=== PATIENT | female | born 1960 ===

== ENCOUNTER 2017-12-23 19:03 | Emergency (ER) | payer MEDICAID ==
[2017-12-23] MEDS ORDERED: Sodium Chloride 0.9% 1,000 ML IV STA (19:56)
[2017-12-23] MEDS ORDERED: Morphine 2 mg/ml ISec IVP STA (19:57)
--- NOTE | 2017-12-23 20:04 | ED PDOC ---
Arrival/HPI <LivanDawood - Last Filed: 12/23/17 23:18> - General Historian: Patient - History of Present Illness Narrative History of Present Illness (Text): 12/23/17 20:02 57yo female with no pmhx present to ED with complaint of sharp constant RUQ abdominal pain that radiates to her back since this morning. the son who interpreted states pain is worse with movement. She did not take any analgesic. she is s/p cholecystectomy. denies nausea, vomiting, constipation, diarrhea, hematuria, urinary symptoms, ripping/tearing upper back pain, fever, chills, trauma, any other complaint. <Karis Chauhan A - Last Filed: 12/24/17 19:19> - General Chief Complaint: Back Pain Time Seen by Provider: 12/23/17 19:36 Past Medical History - Provider Review Nursing Documentation Reviewed: Yes - Infectious Disease Hx of Infectious Diseases: None - Reproductive Menopause: Yes - Psychiatric Hx Substance Use: No - Anesthesia Hx Anesthesia: No <Karis Chauhan A - Last Filed: 12/24/17 19:19> Family/Social History - Physician Review Nursing Documentation Reviewed: Yes Family/Social History: Unknown Family HX Smoking Status: Unknown If Ever Smoked Hx Alcohol Use: No Hx Substance Use: No <Karis Chauhan A - Last Filed: 12/24/17 19:19> Allergies/Home Meds <LivanDawood - Last Filed: 12/23/17 23:18> <Karis Chauhan A - Last Filed: 12/24/17 19:19> Allergies/Adverse Reactions: Allergies No Known Allergies Allergy (Verified 12/23/17 19:20) Review of Systems - Physician Review All systems were reviewed & negative as marked: Yes - Review of Systems Constitutional: Normal Eyes: Normal ENT: Normal Respiratory: Normal Cardiovascular: Normal Gastrointestinal: Abdominal Pain. absent: Constipation, Diarrhea, Nausea, Vomiting, Hematochezia, Hematemesis Genitourinary Female: Normal Musculoskeletal: Normal Skin: Normal Neurological: Normal Endocrine: Normal Hemo/Lymphatic: Normal Psychiatric: Normal <Karis Chauhan A - Last Filed: 12/24/17 19:19> Physical Exam Vital Signs Temp Pulse Resp BP Pulse Ox 12/23/17 22:28 61 17 132/83 98 12/23/17 19:17 98.7 F 74 18 158/80 H 99 <Dawood Licona - Last Filed: 12/23/17 23:18> Vital Signs Reviewed: Yes Vital Signs Temp Pulse Resp BP Pulse Ox 12/23/17 19:17 98.7 F 74 18 158/80 H 99 Temperature: Afebrile Blood Pressure: Normal Pulse: Regular Respiratory Rate: Normal Appearance: Positive for: Well-Appearing, Non-Toxic, Comfortable Pain Distress: None Mental Status: Positive for: Alert and Oriented X 3 - Systems Exam Head: Present: Atraumatic, Normocephalic Pupils: Present: PERRL Extroacular Muscles: Present: EOMI Conjunctiva: Present: Normal Mouth: Present: Moist Mucous Membranes Neck: Present: Normal Range of Motion Respiratory/Chest: Present: Clear to Auscultation, Good Air Exchange. No: Respiratory Distress, Accessory Muscle Use Cardiovascular: Present: Regular Rate and Rhythm, Normal S1, S2. No: Murmurs Abdomen: Present: Tenderness (RUQ tenderness), Normal Bowel Sounds, Guarding (Voluntary), Scars (Healed surgical scar noted over the RUQ and mid abdominal wall), Other (\). No: Distention, Peritoneal Signs, Rebound, McBurney's Point Tender, Rovsing's Sign Present Back: Present: Normal Inspection Upper Extremity: Present: Normal Inspection. No: Cyanosis, Edema Lower Extremity: Present: Normal Inspection. No: Edema Neurological: Present: GCS=15, CN II-XII Intact, Speech Normal Skin: Present: Warm, Dry, Normal Color. No: Rashes Psychiatric: Present: Alert, Oriented x 3, Normal Insight, Normal Concentration <Diru,Happiness A - Last Filed: 12/24/17 19:19> Medical Decision Making - Lab Interpretations Lab Results: 12/23/17 20:55 12/23/17 22:00 Lab Results 12/23/17 22:00: Sodium Pending, Potassium 3.8, Chloride Pending, Carbon Dioxide Pending, Anion Gap Pending, BUN Pending, Creatinine Pending, Est GFR ( Amer) Pending, Est GFR (Non-Af Amer) Pending, Random Glucose Pending, Calcium Pending, Total Bilirubin Pending, AST Pending, ALT Pending, Alkaline Phosphatase Pending, Lactate Dehydrogenase Pending, Total Creatine Kinase Pending, Troponin I Pending, Total Protein Pending, Albumin Pending, Globulin Pending, Albumin/Globulin Ratio Pending, Amylase Pending, Lipase Pending 12/23/17 21:40: Urine Color Light yellow, Urine Appearance Clear, Urine pH 6.0, Ur Specific [place] 1.010, Urine Protein Negative, Urine Glucose (UA) Negative, Urine Ketones Negative, Urine Blood Small H, Urine Nitrate Negative, Urine Bilirubin Negative, Urine Urobilinogen 0.2, Ur Leukocyte Esterase Trace H, Urine RBC 5 - 10, Urine WBC 2 - 5, Ur Epithelial Cells 4 - 5, Urine Bacteria Mod 12/23/17 20:55: PT 11.8, INR 1.03, APTT 32.4 12/23/17 20:55: WBC 14.4 H, RBC 4.37, Hgb 12.6, Hct 37.7, MCV 86.3, MCH 28.8, MCHC 33.4, RDW 14.6 H, Plt Count 412, MPV 10.2, Gran % 61.5, Lymph % (Auto) 30.0, [place] % (Auto) 6.9 H, Eos % (Auto) 1.3 L, Baso % (Auto) 0.3, Gran # 8.88 H, Lymph # (Auto) 4.3 H, [place] # (Auto) 1.0 H, Eos # (Auto) 0.2, Baso # (Auto) 0.04 - RAD Interpretation Radiology Orders: 12/23/17 20:00 ABD & PELVIS IV CONTRAST ONLY [CT] Stat - Medication Orders Current Medication Orders: Discontinued Medications Famotidine (Pepcid) 20 mg IVP STAT STA Stop: 12/23/17 19:57 Last Admin: 12/23/17 21:55 Dose: 20 mg IVP Administration Document 12/23/17 21:55 IT (Rec: 12/23/17 21:55 IT [id number]) Charges for Administration # of IVP Administrations 1 Sodium Chloride (Sodium Chloride 0.9%) 1,000 mls @ 999 mls/hr IV .Q1H1M STA Stop: 12/23/17 20:56 Last Admin: 12/23/17 21:55 Dose: 999 mls/hr eMAR Start Stop Document 12/23/17 21:55 IT (Rec: 12/23/17 21:55 IT [id number]) Intravenous Solution Start Date 12/23/17 Start Time 21:55 Morphine Sulfate (Morphine) 2 mg IVP STAT STA Stop: 12/23/17 19:58 Last Admin: 12/23/17 21:55 Dose: 2 mg MAR Pain Assessment Document 12/23/17 21:55 IT (Rec: 12/23/17 21:55 IT [id number]) Pain Reassessment Is this a pain reassessment? No Sleep Is patient sleeping during reassessment? No IVP Administration Document 12/23/17 21:55 IT (Rec: 12/23/17 21:55 IT [id number]) Charges for Administration # of IVP Administrations 1 <Dawood Licona - Last Filed: 12/23/17 23:18> ED Course and Treatment: 12/24/17 01:53 57yo female who present with RUQ abdominal pain that radiates to her back x one day. Labs EKG Saline, Morphine, Pepcid On re evaluation pt states her pain improved EKG NSR @ 60bpm Lab reviewed and leukocytosis noted . 12/24/17 01:58 COMMENTS: The liver is of uniform attenuation without mass or defect. There is no intra or extrahepatic biliary ductal dilatation. The spleen is normal. The gallbladder is absent. The pancreas is of normal contour and attenuation characteristics. There is no evidence of adrenal mass. Both kidneys demonstrate prompt and equal nephrograms. The kidneys are normal in size, shape and configuration. There is no evidence of renal or ureteral mass. No renal or ureteral calculi are identified. There is no hydroureter or hydronephrosis. No evidence for appendicitis. There is no bowel wall thickening. No evidence for small or large bowel obstruction. There is no evidence of abdominal ascites or lymphadenopathy. There is no evidence of intrinsic or extrinsic bladder mass. There is no pelvic ascites or lymphadenopathy. Images of the lung bases show no evidence of pleural or parenchymal mass. There are no pleural effusions. The bony structures are free of lytic or blastic lesions. Fat containing umbilical hernia without incarceration. IMPRESSION: No evidence of acute abdominal or pelvic pathology. Thank you for your kind referral of this patient. Abdominal CT result noted as above. Secondary to pt's improved symptom in ED and CT finding, pt will be DC home. Result was DW both pt and her son. She was advised to f/u with her PMD/GI for further outpt evaluation Pepcid and Tramadol rx given for pain TRT ED for any new or worsening symptoms - RAD Interpretation Radiology Orders: 12/23/17 20:00 ABD & PELVIS IV CONTRAST ONLY [CT] Stat - Medication Orders Current Medication Orders: Famotidine (Pepcid) 20 mg IVP STAT STA Stop: 12/23/17 19:57 Sodium Chloride (Sodium Chloride 0.9%) 1,000 mls @ 999 mls/hr IV .Q1H1M STA Stop: 12/23/17 20:56 Morphine Sulfate (Morphine) 2 mg IVP STAT STA Stop: 12/23/17 19:58 <Karis Chauhan A - Last Filed: 12/24/17 19:19> - PA / HVAC RESIDENTIAL SERVICE TECHNICIAN / Resident Statement / has reviewed & agrees with the documentation as recorded. <Dawood Licona - Last Filed: 12/23/17 23:18> Disposition/Present on Arrival <Dawood Licona - Last Filed: 12/23/17 23:18> - Present on Arrival Any Indicators Present on Arrival: No History of DVT/PE: No History of Uncontrolled Diabetes: No Urinary Catheter: No History of Decub. Ulcer: No History Surgical Site Infection Following: None - Disposition Have Diagnosis and Disposition been Completed?: Yes Disposition Time: 01:50 Patient Plan: Discharge <Karis Chauhan A - Last Filed: 12/24/17 19:19> - Disposition Diagnosis: Abdominal pain Disposition: HOME/ ROUTINE Condition: STABLE Discharge Instructions (ExitCare): Acute Abdomen (Belly Pain), Adult (DC) Additional Instructions: Follow up with the PMD/clinic Return to ED for any new or worsening symptoms Prescriptions: Famotidine [Pepcid] 40 mg PO DAILY #15 tab RX: traMADol [Ultram] 50 mg PO Q6 #7 tab Referrals: Bossman Steiner MD [Primary Care Provider] - Follow up with primary Forms: [employer] (Russian)
[2017-12-23 21:51] LABS: BASO # 0.04 K/mm3 (0.0-2.0); BASO % 0.3 % (0.0-3.0); EOS # 0.2 (0.0-0.7); EOS % 1.3 % (1.5-5.0); GRAN # 8.88 (1.4-6.5); GRAN % 61.5 % (50.0-68.0); HEMOGLOBIN 12.6 g/dL (12.0-16.0); INR 1.03; LYMPH # 4.3 (1.2-3.4); MEAN CELL VOLUME 86.3 fl (80.0-105.0); MEAN CORPUSCULAR HEMOGLOBIN 28.8 pg (25.0-35.0); MEAN CORPUSCULAR HGB CONC 33.4 g/dl (31.0-37.0); MEAN PLATELET VOLUME 10.2 fl (7.0-11.0); MONO % 6.9 % (1.0-6.0); PARTIAL THROMBOPLASTIN TIME 32.4 Seconds (25.1-36.5); PROTHROMBIN TIME 11.8 SECONDS (9.4-12.5); RBC 4.37 10^6/uL (3.5-6.1); RED CELL DISTRIBUTION WIDTH 14.6 % (11.5-14.5); WHITE BLOOD COUNT 14.4 10^3/ul (4.5-11.0)
[2017-12-23 22:19] LABS: URINE BILIRUBIN NEGATIVE (NEGATIVE); URINE BLOOD SMALL (NEGATIVE); URINE GLUCOSE (UA) NEGATIVE (NEGATIVE); URINE LEUKOCYTE ESTERASE TRACE Leu/uL (NEGATIVE); URINE PROTEIN NEGATIVE mg/dL (<30 mg/dL); URINE UROBILINOGEN 0.2 E.U./dL (<1 E.U./dL)
[2017-12-23 22:20] LABS: URINE APPEARANCE CLEAR (CLEAR); URINE COLOR LIGHT YELLOW (YELLOW)
[2017-12-23 22:28] LABS: URINE BACTERIA MOD (NEG)
[2017-12-23 22:29] VITALS: RESP 17; O2SAT 98
[2017-12-23 23:19] LABS: ALB/GLOB RATIO 1.2 (1.1-1.8); ALBUMIN 3.9 g/dL (3.0-4.8); ALT/SGPT 20 U/L (7-56); AMYLASE 123 U/L (35-125); AST/SGOT 25 U/L (14-36); BLOOD UREA NITROGEN 11 mg/dL (7-21); CALCIUM 9.2 mg/dL (8.4-10.5); GFR NON-AFRICAN AMERICAN > 60; LIPASE 130 U/L (23-300)
[2017-12-23] MEDS ORDERED: Iohexol 350 MG/100 ML VIAL ONE (23:24)
[2017-12-23 23:26] LABS: TROPONIN I < 0.01 ng/mL
[2017-12-24 02:12] VITALS: BP 133/71; PULSE 69; TEMP 98
--- NOTE | 2017-12-24 13:00 | CARD ---
APPROVED REPORT Date of service: 12/23/2017 EKG Measurement Heart [id number] <Conclusion> Normal sinus rhythm Normal ECG
--- NOTE | 2017-12-25 11:30 | CT ---
Date of service: 12/24/2017 PROCEDURE: CT Abdomen and Pelvis with contrast HISTORY: RUQ pain COMPARISON: None. TECHNIQUE: Contrast dose: 100 cc of Omni 350 Radiation dose: Total exam DLP = 428 mGy-cm. This CT exam was performed using one or more of the following dose reduction techniques: Automated exposure control, adjustment of the mA and/or kV according to patient size, and/or use of iterative reconstruction technique. FINDINGS: LOWER THORAX: Unremarkable. LIVER: Unremarkable. No gross lesion or ductal dilatation. GALLBLADDER AND BILE DUCTS: Unremarkable. PANCREAS: Unremarkable. No gross lesion or ductal dilatation. SPLEEN: Unremarkable. ADRENALS: Unremarkable. No mass. KIDNEYS AND URETERS: Unremarkable. No hydronephrosis. No solid mass. VASCULATURE: Unremarkable. No aortic aneurysm. BOWEL: Unremarkable. No obstruction. No gross mural thickening. APPENDIX: Normal appendix. PERITONEUM: Unremarkable. No free fluid. No free air. LYMPH NODES: Unremarkable. No enlarged lymph nodes. BLADDER: Unremarkable. REPRODUCTIVE: Unremarkable. BONES: No acute fracture. OTHER FINDINGS: The report concurs with the preliminary [facility] report IMPRESSION: No acute intra-abdominal findings
== END 2017-12-24 02:12 | disposition home or self-care (01) ==
LOC: ED 19:03
DX: R10.11 Right upper quadrant pain (principal)
CPT/HCPCS: 74177; 80053; 81001; 82150; 82550; 83615; 83690; 84484; 85025; 85610; 85730; 87086; 93005; 96374; 96375; 99283; J2270; J7030; Q9967

== ENCOUNTER 2018-08-08 17:02 | Emergency (ER) | payer MEDICAID ==
[2018-08-08 17:11] VITALS: RESP 16; TEMP 98.6
--- NOTE | 2018-08-08 18:08 | ED PDOC ---
Arrival/HPI - General Chief Complaint: ENT Problem Time Seen by Provider: 08/08/18 17:19 Historian: Patient - History of Present Illness Narrative History of Present Illness (Text): 08/08/18 18:05 58 year old female, with no significant past medical history, who presents to the emergency department with chief complaint of right sided facial pain for the past 2 days. Patient reports pain radiates form mouth to ears. She reports she ate fish and believes the thorn of the fish is stuck in her mouth. Time/Duration: < week Symptom Onset: Gradual Symptom Course: Unchanged Activities at Onset: Light Context: Home Past Medical History - Provider Review Nursing Documentation Reviewed: Yes - Infectious Disease Hx of Infectious Diseases: None - Reproductive Menopause: Yes - Psychiatric Hx Substance Use: No - Surgical History Other/Comment: Dental implent - Anesthesia Hx Anesthesia: No Family/Social History - Physician Review Nursing Documentation Reviewed: Yes Family/Social History: Unknown Family HX Smoking Status: Never Smoked Hx Alcohol Use: No Hx Substance Use: No Allergies/Home Meds Allergies/Adverse Reactions: Allergies No Known Allergies Allergy (Verified 08/08/18 17:11) Home Medications: Home Meds Medication Instructions Recorded Confirmed Amoxicillin [Amoxil 500 mg Cap] 500 mg PO BID 08/08/18 08/08/18 Review of Systems - Physician Review All systems were reviewed & negative as marked: Yes - Review of Systems Musculoskeletal: Other (right sided facial pain ) Physical Exam - Physical Exam Narrative Physical Exam (Text): 08/08/18 18:04 Gen: VS reviewed, alert, well developed, well nourished, nontoxic, mild distress Eye: EOMI, PERRL Neck: no JVD, supple, no adenopathy, mild tenderness to the right posterior mandibular area, no parotid glans swelling, no mastoid tenderness, no proptosis of the ear Ear: normal TM and canal CV: regular rate, regular rhythm, no rubs,no murmur, S1, S2 Pulm: no distress, clear to auscultation, no wheeze, no rhonchi, breath sounds equal, no rales Abd: soft, nontender, no guarding, no rebound, no rigidity Ext: no edema Skin: good color, no rash, no cyanosis Psych: responds appropriately to questions, normal affect Neuro: oriented x3, CN2-12 intact grossly, motor intact, sensation intact Vital Signs Temp Pulse Resp BP Pulse Ox 08/08/18 17:08 98.6 F 67 16 148/81 97 Medical Decision Making ED Course and Treatment: 08/08/18 18:03 Impression: 58 year old female presents to the emergency department with chief complaint of right sided facial pain x 2 days Plan: -- labs -- CT Maxillofacial -- Toradol -- Iv fluids -- Reassess and disposition Prior Visits: Notes and results from previous visits were reviewed. Progress Notes: 08/08/18 19:58 patient seen for right submandibular pain, ?foreign body after eating fishbone. CT result pending. case endorsed to dr. osullivan, pending CT and final dispo. at this time the patient reports that her pain is significantly improved. - Scribe Statement The provider has reviewed the documentation as recorded by the Samanthaibe Raj Sinha All medical record entries made by the Scribe were at my direction and personally dictated by me. I have reviewed the chart and agree that the record accurately reflects my personal performance of the history, physical exam, medical decision making, and the department course for this patient. I have also personally directed, reviewed, and agree with the discharge instructions and disposition. Disposition/Present on Arrival - Present on Arrival Any Indicators Present on Arrival: No History of DVT/PE: No History of Uncontrolled Diabetes: No Urinary Catheter: No History of Decub. Ulcer: No History Surgical Site Infection Following: None - Disposition Have Diagnosis and Disposition been Completed?: Yes Diagnosis: Neck pain Disposition Time: 19:59 Patient Problems: Current Active Problems Problem Status Onset Neck pain Acute Condition: STABLE Referrals: Lilia Barnes DO [Primary Care Provider] - Follow up with primary Forms: [employer] (Surinamese)
[2018-08-08 18:45] LABS: BLOOD UREA NITROGEN 8 mg/dL (7-21); CALCIUM 9.5 mg/dL (8.4-10.5); GFR NON-AFRICAN AMERICAN > 60
[2018-08-08 18:51] LABS: BASO # 0.05 K/mm3 (0.0-2.0); BASO % 0.4 % (0.0-3.0); EOS # 0.1 (0.0-0.7); EOS % 1.1 % (1.5-5.0); HEMOGLOBIN 12.2 g/dL (12.0-16.0); LYMPH # 3.8 (1.2-3.4); LYMPH % 32.8 % (22.0-35.0); MEAN CELL VOLUME 85.8 fl (80.0-105.0); MEAN CORPUSCULAR HEMOGLOBIN 27.4 pg (25.0-35.0); MEAN CORPUSCULAR HGB CONC 31.9 g/dl (31.0-37.0); MEAN PLATELET VOLUME 9.9 fl (7.0-11.0); MONO % 8.6 % (1.0-6.0); RBC 4.45 10^6/uL (3.5-6.1); RED CELL DISTRIBUTION WIDTH 14.9 % (11.5-14.5); WHITE BLOOD COUNT 11.5 10^3/uL (4.5-11.0)
[2018-08-08] MEDS ORDERED: Iohexol 350 MG/100 ML VIAL ONE (19:09)
--- NOTE | 2018-08-08 20:18 | ED PDOC ---
Physical Exam Vital Signs Temp Pulse Resp BP Pulse Ox 08/08/18 17:08 98.6 F 67 16 148/81 97 Medical Decision Making ED Course and Treatment: 08/08/18 20:00 Case endorsed to me by Dr. Gee, pending CT Maxillofacial, re-evaluation, and disposition. ct negative , wbc elevated will treat for otitis media and dc - RAD Interpretation Radiology Orders: 08/08/18 18:11 MAXILLOFACIAL W/CONTRAST [CT] Stat - Medication Orders Current Medication Orders: Discontinued Medications Ketorolac Tromethamine (Toradol) 30 mg IVP STAT STA Stop: 08/08/18 18:11 Last Admin: 08/08/18 18:48 Dose: 30 mg MAR Pain Assessment Document 08/08/18 18:48 [email or web address] (Rec: 08/08/18 18:49 [email or web address] [facility] Pain Reassessment Is this a pain reassessment? No Sleep Is patient sleeping during reassessment? No Presence of Pain Presence of Pain Yes Pain Scale Used Protocol: PSCALES Pain Scale Used Numeric Location Left, Right or Bilateral Right Pain Location Body Site Ear Description Description Constant Intensity of Pain at present 4 Pain Behavior Facial Grimacing Aggravating Factors Changing Position Alleviating Factors/Management Medication Techniques Alleviating Factors Medication IVP Administration Document 08/08/18 18:48 [email or web address] (Rec: 08/08/18 18:[email or web address] [facility] [place] [id number]) Charges for Administration # of IVP Administrations 1 Disposition/Present on Arrival - Present on Arrival Any Indicators Present on Arrival: No History of DVT/PE: No History of Uncontrolled Diabetes: No Urinary Catheter: No History of Decub. Ulcer: No History Surgical Site Infection Following: None - Disposition Have Diagnosis and Disposition been Completed?: Yes Diagnosis: Neck pain, Ear pain, right Disposition: HOME/ ROUTINE Disposition Time: 21:00 Condition: STABLE Discharge Instructions (ExitCare): Ear Infections (Otitis Media) Prescriptions: Amoxicillin 875 mg PO BID #20 tab Referrals: Lilia Barnes DO [Primary Care Provider] - Follow up with primary Forms: [employer] (Pashto)
[2018-08-08 22:02] VITALS: BP 136/78; PULSE 74; O2SAT 100
--- NOTE | 2018-08-09 14:07 | CT ---
Date of service: 08/08/2018 PROCEDURE: CT MAXILLOFACIAL BONES WITH CONTRAST HISTORY: right submandibular pain COMPARISON: None. TECHNIQUE: Contiguous axial CT images of the maxillofacial bones were obtained following administration of IV contrast. Coronal and sagittal reformats were generated. Intravenous contrast Dose: 96 cc of Omni 350 Radiation dose: Total exam DLP = 903.1 mGy-cm. This CT exam was performed using one or more of the following dose reduction techniques: Automated exposure control, adjustment of the mA and/or kV according to patient size, and/or use of iterative reconstruction technique. FINDINGS: NASAL BONES: Unremarkable. ORBITS: Unremarkable. PARANASAL SINUSES/ MASTOIDS: Clear. MAXILLA: Unremarkable. MANDIBLE/ TEMPOROMANDIBULAR JOINTS: Unremarkable. SKULL BASE: Unremarkable. TEMPORAL BONES: Middle ears and mastoid grossly unremarkable. OTHER FINDINGS: The report concurs with the preliminary [facility] report IMPRESSION: Unremarkable contrast enhanced CT of the maxillofacial bones.
== END 2018-08-08 21:01 | disposition home or self-care (01) ==
LOC: ED 17:02
DX: M54.2 Cervicalgia (principal); H92.01 Otalgia, right ear
CPT/HCPCS: 70488; 80048; 83690; 85025; 96374; 99283; J1885; Q9967